=== PATIENT | male | born 1950 | race Caucasian/White ===

== ENCOUNTER → 2017-03-27 | Outpatient (CLI) | payer OTHER ==
[~2017-03-27] VITALS: Ht 180.3 cm; Wt 108.9 kg
[~2017-03-27] MED LIST: AMPICILLIN SODIU2 GM IV; ENOXAPARIN40 MG/0.1 SUBQ; PEPCID20 MG PO; PROSCAR 5MG TABL5 M1 PO; PROTONIX40 M1 PO; TOPROL XL25 MG PO
[2017-03-27 09:54] VITALS: BP 124/90
[2017-03-27 10:53] LABS: HEMATOCRIT 32.6 % (42.0-52.0); HEMOGLOBIN 10.8 gm/dL (14.0-18.0); MCH 28.4 pg (26.0-34.0); MCHC 33.1 g/dL (28.0-37.0); MCV 85.8 fL (80.0-100.0); RBC 3.8 mil/uL (4.50-6.00); RDW 14.2 % (10.5-14.5); WBC 9.6 thou/uL (4.0-11.0)
[2017-03-27 11:02] LABS: CALCIUM 8.9 mg/dL (8.5-10.1); CREATININE 1.2 mg/dL (0.7-1.3); POTASSIUM 3.8 mmol/L (3.5-5.1)
[2017-03-27 11:11] LABS: APTT 26.4 Seconds (24.5-32.8); INR 1.1; PROTIME 11.5 Seconds (9.3-11.4)
[2017-03-27 13:59] VITALS: BP 113/62
[2017-03-27 14:16] VITALS: BP 131/84
[2017-03-27 14:30] VITALS: BP 104/65
== END | disposition home or self-care (01) ==
LOC: SPEC 08:20
PROVIDERS: Radiology Vascular & Interventional Radiology
DX: T85.898A Other specified complication of other internal prosthetic devices, implants and grafts, initial encounter (principal); K26.9 Duodenal ulcer, unspecified as acute or chronic, without hemorrhage or perforation; E78.00 Pure hypercholesterolemia, unspecified; Z98.890 Other specified postprocedural states